=== PATIENT | male | born 1940 | race Caucasian/White ===

== ENCOUNTER 2017-08-03 14:43 | Outpatient (CLI) | payer MEDICARE, BC | END 2017-08-03 14:44 | disposition home or self-care (01) | LOC: ULT 14:43 | PROVIDERS: ATTEND Internal Medicine | DX: R01.1 Cardiac murmur, unspecified (principal); I08.1 Rheumatic disorders of both mitral and tricuspid valves | CPT/HCPCS: 93306 ==

== ENCOUNTER 2018-09-29 14:32 | Outpatient (CLI) | payer MEDICARE, BC ==
[~2018-09-29 14:32] MED LIST: Gadobenate Dimeglumine 529 MG/1 ML (20ML VIAL) ONE
[2018-09-29 15:13] LABS: Estimated GFR-MDRD - POC Greater than 90
--- NOTE | 2018-09-30 08:28 | MRI ---
MRI PELVIS (PROSTATE) WITH AND WITHOUT IV CONTRAST: HISTORY: Elevated PSA. No surgeries of biopsy. COMPARISON: None TECHNIQUE: Multiplanar multisequence MRI of the pelvis was performed using the prostate protocol prior to and af ter the administration of IV contrast. Review was performed at an independent 3-D workstation. FINDINGS: The prostate measures 5.5 x 5 x 4 cm with a volume of approximately 57.5 mL. There is a 5 mm focus of abnormal diffusion restriction in the transition zone at the left side of th e apex of the prostate gland. This has low signal on ADC and demonstrates postcontrast enhancement and suggests a malignant process. No lentiform area of abnormally decreased T2 signal is seen in the transition zone to suggest a malig nant process. The prostate capsule is intact. The seminal vesicles are intact. No lymphadenopathy is seen. The neur ovascular bundle is spared. The pelvic sidewall is normal. No abnormal areas of signal replacement are seen on the T1-weighted images in the bones to suggest os seous metastatic disease. 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 This exam was interpreted in consultation with Dr. Jacoby Estrada who concurs.
== END 2018-09-29 14:33 | disposition home or self-care (01) ==
LOC: TBSIIMAG 14:32
PROVIDERS: ATTEND Urology
DX: R97.20 Elevated prostate specific antigen [PSA] (principal)
CPT/HCPCS: 72197; 82565; A9577